=== PATIENT | female | born 1990 | race Caucasian/White ===

== ENCOUNTER 2020-03-25 18:56 | Emergency (ER) | payer MEDICAID, SELFPAY ==
[2020-03-25 18:57] VITALS: BP 160/103; PULSE 93; RESP 16; TEMP 36.1; O2SAT 96; BMI 38.4
--- NOTE | 2020-03-25 19:15 | RAD_ITS ---
STUDY: X-RAY - LEFT HAND REASON FOR EXAM: Female, 29 years old. vacuum pattern cleaner fell on patient''s hand, pain TECHNIQUE: 3 view(s) of the hand. COMPARISON: None. FINDINGS: Normal radiocarpal articulation. Normal distal radioulnar joint. Normal visualized carpal bones. Normal carpal articulations Normal carpometacarpal articulation of the thumb. Normal second through fifth carpometacarpal joints. Normal metacarpi. Normal metacarpophalangeal joint of the thumb. Normal interphalangeal joint of the thumb. Normal proximal and distal phalanges of the thumb. Normal metacarpophalangeal joints of the second through fifth fingers. Normal proximal and distal interphalangeal joints of the second through fifth fingers. Normal phalanges of the second through fifth fingers. The soft tissue structures are unremarkable. RAD/Hand Min 3 Views IMPRESSION: Normal x-ray examination of the hand. Electronically Signed: Edilberto Eldridge MD (Bro[place]) at 19:38 EST , Service support ,
--- NOTE | 2020-03-25 20:23 | ED.VISSUMM ---
- ER Visit Summary Date of Service: 03/25/20 Chief Complaint: Left hand pain History of Present Illness: The patient is a 29 F with left hand pain. A vacuum fell on her hand. Physical Examination: Patient has tenderness to palpation of the fourth metacarpal of her left hand. Skin intact. Neurovascular intact. Test Results: X-rays negative. Emergency Department Course and Treatment: Ice pack applied. X-rays negative. Rest, ice, elevate. [id number] remedies for pain. Outpatient follow-up. Treatment Plan: As above Disposition: Discharge Impression: Left hand contusion This note was generated with Flow Studio dictation software. It may contain incorrect words, spelling, and punctuation that were not noted in review of the chart prior to signing ED Disposition - Plan for ED Patient: Referrals: Colby Macario MD [Primary Care Provider] -
--- NOTE | 2020-03-25 20:24 | ED.DEP ---
ED Disposition - Plan for ED Patient: Instructions: Contusions (Bruises) Referrals: Cloby Macario MD [Primary Care Provider] -
[2020-03-25 20:51] VITALS: RESP 16
== END 2020-03-25 20:51 | disposition home or self-care (01) ==
LOC: ED 19:23
PROVIDERS: Emergency Provider Emergency Medicine; PCP Family Medicine
DX: S60.222A Contusion of left hand, initial encounter (principal); W20.8XXA Other cause of strike by thrown, projected or falling object, initial encounter; Y93.9 Activity, unspecified; Y92.89 Other specified places as the place of occurrence of the external cause; Y99.9 Unspecified external cause status
CPT/HCPCS: 73130; 99282

== ENCOUNTER 2020-10-12 21:08 | Emergency (ER) | payer MEDICAID, SELFPAY ==
[2020-10-12 21:08] VITALS: BP 131/69; PULSE 100; RESP 18; TEMP 36.6; O2SAT 98; BMI 38.0
--- NOTE | 2020-10-12 21:45 | ED.RN ---
2145 pt lwbs because her ride had to leave.
== END 2020-10-12 22:45 ==
LOC: ED 22:45
PROVIDERS: PCP Family Medicine
DX: R51.9 Headache, unspecified (principal)
CPT/HCPCS: A4216

== ENCOUNTER 2020-12-22 17:21 | Emergency (ER) | payer MEDICAID, SELFPAY ==
[2020-12-22 17:21] VITALS: BP 140/105; PULSE 126; RESP 18; TEMP 36.1; O2SAT 97; BMI 40.4
--- NOTE | 2020-12-22 18:40 | RAD_ITS ---
STUDY: X-RAY CHEST REASON FOR EXAM: Female, 30 years old. Cough TECHNIQUE: Single AP portable view of the chest. COMPARISON: None. FINDINGS: The lungs are clear and expanded. There is no demonstrated pleural abnormality. Normal size heart. Normal mediastinum and keith. Normal visualized pulmonary arteries. Normal visualized aortic arch and descending thoracic aorta. Normal visualized thoracic spine. Normal visualized ribs, clavicles, and shoulders. There is no demonstrated abnormality of the visualized soft tissue structures of the upper abdomen. RAD/Chest 1 View (Portable) IMPRESSION: Normal x-ray examination of the chest. Electronically Signed: Javed Garza MD at 19:05 EDT , Service support ,
--- NOTE | 2020-12-22 18:43 | EX.ED.DYSGE1 ---
HPI History of Present Illness Chief Complaint: Shortness of Breath Informant: patient Onset/Context/Timing Onset: Days Context: Gradual Onset Narrative Narrative: Patient presents with 3-day history of cough and shortness of breath. She rarely will bring up sputum and when she does she states it is green in color. She had low-grade temperature between 100.4 and 100.6. She does report some chest and rib pain worse with cough and movement. No vomiting or diarrhea. No loss of smell or taste. She was seen at urgent care today and had a Covid test obtained but results not available yet. PFSH PFSH Medical History no medical history no medical history Home Medications Omeprazole [Prilosec] 40 mg PO DAILY 12/25/15 [History Last Taken 05/29/16] etonogestrel-ethinyl estradiol [Nuvaring Vaginal Ring] 1 ea VG X1 12/25/15 [History Last Taken 05/05/16] benzonatate 100 mg PO TID PRN #20 cap 12/22/20 [Rx Last Taken Unknown] ropinirole mg 12/22/20 [History Last Taken Unknown] sertraline mg 12/22/20 [History Last Taken Unknown] sumatriptan succinate mg PO 12/22/20 [History Last Taken Unknown] triamcinolone acetonide applic TOPICAL 12/22/20 [History Last Taken Unknown] Allergy/AdvReac Type Severity Reaction Status Date / Time atomoxetine [From Strattera] AdvReac Nausea Verified 10/12/20 21:10 bupropion [From Wellbutrin] AdvReac Nausea Verified 10/12/20 21:10 Social History Smoking Status: Never smoker ROS ROS ED Constitutional Constitutional ED: Reports fever(s); Denies chills Eyes Eyes: Denies change in vision ENT ENT ED: Denies sore throat Cardiovascular Cardiovascular: Reports other Details: Chest wall pain Respiratory/Chest Respiratory/Chest: Reports cough, dyspnea and sputum Gastrointestinal Gastrointestinal: Denies abdominal pain, diarrhea, nausea or vomiting Genitourinary Genitourinary ED: Denies dysuria Musculoskeletal Musculoskeletal: Reports myalgias; Denies back pain Integumentary Denies rash Neurologic Neurologic: Denies headache(s) or weakness Allergic/Immunologic Allergic/Immunologic ED: Denies urticaria EXAM Physical Exam Const Vital Signs: 12/22/20 17:21 12/22/20 19:11 Temperature 96.9 F L Temperature Source Temporal Pulse Rate 126 H Respiratory Rate 18 Respiratory Effort Normal Respiratory Depth Normal Respiratory Pattern Normal Blood Pressure 140/105 H Blood Pressure Mean 116 Pulse Ox 97 Oxygen Delivery Method Room Air Positive well nourished and well developed General Appearance ED: well developed HEENT Reports normocephalic and head/scalp atraumatic Eyes PERRL and EOMs intact bilaterally Neck supple Chest Wall inspection of chest normal Chest Narrative: Muscular tenderness with palpation of her chest wall. Resp normal respiratory effort and clear to auscultation bilaterally Cardio regular rhythm Rate: tachycardic GI normal to inspection, nondistended, normoactive bowel sounds Palpation: soft Back/Spine no CVA tenderness Extremity normal to inspection Neuro oriented x3 and no sensory deficits noted Sensorium / Orientation: alert Motor Exam: strength 5/5 throughout Psych mental status grossly normal Skin no rashes or lesions noted MDM MDM MDM Narrative Medical decision making narrative: Portable chest x-ray, Covid swab ordered. Patient given Robitussin-AC. Radiography Chest X-Ray - ED: 1 View, Read by ED Physician, Normal, Heart, Lungs and Mediastinum Diagnostic Testing: Clinical Impression(s) from Imaging Studies Chest X-Ray 12/22/20 18:40 IMPRESSION: Normal x-ray examination of the chest. Electronically Signed: Javed Garza MD at 19:05 EDT , Service support , Treatment and Re-Evaluation Comments:: On repeat evaluation patient resting comfortably. Rapid Covid test is negative. Chest x-ray is clear per my interpretation as well as radiologist review. Patient will continue supportive care. I will write her Roland Vincent for home. Discharge Plan Triage Chief Complaint: Shortness of Breath ED Provider: Ayse العراقي Dx/Rx/DC Orders Clinical Impression: Viral URI with cough Instructions: ED URI, Viral, No Abx (Adult) Prescriptions: New benzonatate 100 mg capsule 100 mg PO TID PRN (Reason: cough) Qty: 20 RF: 0 No Action etonogestrel-ethinyl estradiol [NuvaRing] 1 EACH ring 1 ea VG X1 RF: 0 Omeprazole [Prilosec] 40 MG capsule 40 mg PO DAILY RF: 0 sertraline 100 mg tablet RF: 0 sumatriptan succinate 50 mg tablet PO RF: 0 triamcinolone acetonide 0.1 % cream TOPICAL RF: 0 ropinirole 0.5 mg tablet RF: 0 Primary Care Provider: Colby Macario Referrals: Colby Macario MD [Primary Care Provider] - 1 Week if not improving Disposition Disposition: Home, Self Care
--- NOTE | 2020-12-22 19:35 | ED.RN ---
Called pharmacy for cough syrup. Luis F Szymanski notifies me that it is backordered. aware and RN waiting new orders.
[2020-12-22] MEDS: guaiFENesin/Codeine 5 ML UDC 10 ML PO (20:13)
[2020-12-22 20:58] VITALS: BP 136/90; PULSE 108; RESP 18; O2SAT 97
== END 2020-12-22 20:58 | disposition home or self-care (01) ==
PROVIDERS: Emergency Provider Emergency Medicine; PCP Family Medicine
DX: J06.9 Acute upper respiratory infection, unspecified (principal); R05.9 Cough, unspecified; Z79.3 Long term (current) use of hormonal contraceptives
CPT/HCPCS: 71045; 87426; 99283

== ENCOUNTER 2021-07-09 09:26 | Observation (INO) | payer MEDICAID, SELFPAY ==
[2021-07-09 09:27] VITALS: BP 164/128; PULSE 114; RESP 7; TEMP 35.8; O2SAT 91; BMI 39.4
--- NOTE | 2021-07-09 09:51 | CT_ITS ---
STUDY: CT ABDOMEN AND PELVIS WITHOUT CONTRAST REASON FOR EXAM: Female, 30 years old. Kidney Stone. Left flank pain. RADIATION DOSAGE (If Supplied By Facility): CTDIvol = ( 17.87 ) mGy, DLP = ( 946.58 ) mGycm TECHNIQUE: Transaxial images were obtained from the dome of the diaphragm to the symphysis pubis without oral contrast, and without intravenous contrast. Sagittal and coronal images were reconstructed. Individualized dose optimization techniques were used for this CT. COMPARISON: Comparison is made with prior study dated 06/09/2016. FINDINGS: Minimal increase in markings at the lung bases suggestive of atelectasis. The visualized portions of the heart are within normal limits. There is decreased attenuation of the liver consistent with steatosis. Normal gallbladder and extrahepatic biliary system. There is mild splenomegaly. Normal pancreas. Normal bilateral adrenal glands. Normal right kidney. Mild degree of left hydronephrosis and left hydroureter with left perinephric and periureteric stranding due to a 3 mm calculus at the left ureterovesical junction. 2 mm nonobstructive calculus is also seen in the upper pole calyx of the left kidney. There is a small hiatal hernia. Normal small intestine. There are scattered colonic diverticula consistent with diverticulosis. The appendix is visualized and appears normal. Normal abdominal aorta. Normal inferior vena cava. Normal retroperitoneum. Normal urinary bladder. IUD is seen within the uterus. Small follicles are seen in the ovaries. Normal abdominal wall. Normal osseous structures. CT/Abdomen/Pelvis without Cont IMPRESSION: 3 mm calculus at the left ureteral vesicle junction causing mild degree of left hydronephrosis and nodule ureter. 2 mm nonobstructive calculus in the upper pole of the left kidney. Electronically Signed: Miko Howard MD at 11:07 EDT ,
--- NOTE | 2021-07-09 10:00 | EX.ED.DYSGE1 ---
HPI History of Present Illness Chief Complaint: Flank Pain Detail of Chief Complaint: Abrupt right-sided flank pain radiating anteriorly Informant: patient Onset/Context/Timing Onset: Today and Hours (0530) Context: Sudden Onset Timing: Continuous and Waxes and wanes Quality: Colicky Location: Right Current Severity: Severe Maximum Severity: Severe Worsened by: Nothing Relieved by: Nothing Associated Symptoms Associated Symptoms: Nausea and vomiting and urgency Narrative Narrative: Patient is a 30-year-old female who presents with abrupt onset of flank pain radiating anteriorly associate with nausea and vomiting. She has history of renal and ureteral stones. She states she has not been to the emergency room in some time for kidney stone. She denies fever, chills night sweats. She denies upper respiratory symptoms. She does endorse nausea and vomiting. She denies diarrhea. She does endorse urgency. She denies dysuria or hematuria. There is no history of trauma. Prior similar symptoms: Yes Recent Illness/Hospitalization: No PFSH PFS Medical History (Updated 07/09/21 @ 13:[address] Glenn Xavier MD) Depression History of kidney stones Home Medications sertraline [Zoloft] 200 mg PO DAILY 07/09/21 [History Last Taken Unknown] Allergy/AdvReac Type Severity Reaction Status Date / Time atomoxetine [From Strattera] AdvReac Nausea Verified 07/09/21 09:26 bupropion [From Wellbutrin] AdvReac Nausea Verified 07/09/21 09:26 Social History (Updated 07/09/21 @ 10:[address] Glenn Xavier MD) household members: none Smoking Status: Never smoker substance use type: does not use ROS ROS ED Constitutional Constitutional ED: Denies chills, fever(s), subjective, sweats or weight loss Eyes Eyes: Denies blurry vision, change in vision or diplopia ENT ENT ED: Denies ear pain, rhinorrhea or sore throat Cardiovascular Cardiovascular: Denies chest pain, palpitations or racing heartbeat Respiratory/Chest Respiratory/Chest: Denies dyspnea Gastrointestinal Gastrointestinal: Reports abdominal pain, nausea and vomiting; Denies constipation, diarrhea or melena Genitourinary Genitourinary ED: Denies dysuria, hematuria or urinary frequency Musculoskeletal Musculoskeletal: Reports back pain; Denies arthralgias, myalgias or neck pain Integumentary Denies rash Neurologic Neurologic: Denies headache(s) or weakness Hematologic/Lymphatic Hematologic/Lymphatic: Denies anemia, easy bleeding or easy bruising EXAM Physical Exam Const Vital Signs: 07/09/21 09:27 07/09/21 14:24 Temperature 96.4 F L Temperature Source Temporal Pulse Rate 114 H Respiratory Rate 7 L 16 Blood Pressure 164/128 H Blood Pressure Mean 140 Pulse Ox 91 Oxygen Delivery Method Room Air Room Air Positive well nourished, well developed and obese General Appearance ED: well developed and other Patient appears in obvious discomfort and unable to find position of comfort. She is actively vomiting. ; Negative for cyanotic, diaphoretic, NAD or pallor Nutritional Appearance: obese HEENT Reports TM's clear and moist mucous membranes Negative for trauma or tenderness Tympanic Membrane ED: Yes TM's clear Eyes PERRL and EOMs intact bilaterally General Eye ED: Negative for pale conjunctiva or scleral icterus Neck no lymphadenopathy, supple and no JVD Resp normal respiratory effort and clear to auscultation bilaterally Cardio regular rhythm, S1 normal heart sound, S2 normal heart sound and no murmurs Rate: tachycardic GI normal to inspection, nondistended, normoactive bowel sounds and non-tender Palpation: soft Back/Spine General Back: CVA tenderness bilateral (Right significantly greater than left) Cervical Spine: Negative for cervical spine tenderness Thoracic Spine / Upper Back: Negative for thoracic spinal tenderness or paraspinal muscle tenderness Neuro oriented x3 and CN's II-XII intact bilaterally Sensorium / Orientation: alert Psych Mood & Affect: tearful Skin no rashes or lesions noted and no wounds General Skin Exam: Negative for jaundice or pallor MDM MDM MDM Narrative Medical decision making narrative: Patient presents with history consistent with obstructing ureterolithiasis. Will obtain UA to rule out infection. Patient was medicated with IV Toradol and morphine for her pain and Zofran for her nausea and vomiting. CT of the abdomen pelvis was ordered to determine size and location of stone. Lab Data Attestation: I reviewed the patient's lab results. Lab results narrative: Urine is consistent with infection. Urine culture was sent. Patient received 1 g of Rocephin. Since she has an obstructing stone with infection Dr. Villa was paged. Labs: Laboratory Results - last 24 hr 07/09/21 07/09/21 07/09/21 10:08 10:08 11:55 WBC 5.5 RBC 5.14 Hgb 14.1 Hct 43.3 MCV 84.2 MCH 27.4 MCHC 32.6 RDW Std Deviation 38.6 RDW Coeff of Rock 12.7 Plt Count 141 L MPV 10.8 Immature Gran % (Auto) 0.200 Neut % (Auto) 76.2 H Lymph % (Auto) 17.5 L [place] % (Auto) 5.2 Eos % (Auto) 0.4 Baso % (Auto) 0.5 Absolute Neuts (auto) 4.2 Absolute Lymphs (auto) 0.97 Nucleated RBC % 0 Sodium 142 Potassium 4.1 Chloride 112 H Carbon Dioxide 23.0 Anion Gap 7 BUN 13 Creatinine 1.06 H Estim Creat Clear Calc 61.38 Est GFR (MDRD) Af Amer 78 Est GFR (MDRD) Non-Af 64 BUN/Creatinine Ratio 12.3 Glucose 154 H Calcium 9.1 Urine Color Yellow Urine Clarity Sl. Cloudy Urine pH 5.0 Ur Specific [place] 1.025 Urine Protein 15 H Urine Glucose (UA) Normal Urine Ketones 5 H Urine Occult Blood 250 H Urine Nitrite Negative Urine Bilirubin Negative Urine Urobilinogen Normal Ur Leukocyte Esterase 100 H Urine RBC 25-50 SEEN Urine WBC 10-25 SEEN Ur Squamous Epith Cells 0-5 SEEN Urine Bacteria 2+ Urine Mucus 0 SEEN Radiography Diagnostic Testing: Clinical Impression(s) from Imaging Studies Abdomen/Pelvis CT 07/09/21 09:51 IMPRESSION: 3 mm calculus at the left ureteral vesicle junction causing mild degree of left hydronephrosis and nodule ureter. 2 mm nonobstructive calculus in the upper pole of the left kidney. Electronically Signed: Miko Howard MD at 11:07 EDT , Discharge Plan Triage Chief Complaint: Flank Pain ED Provider: Glenn Xavier Dx/Rx/DC Orders Clinical Impression: Hydronephrosis with urinary obstruction due to ureteral calculus, Urinary tract infection Prescriptions: No Action sertraline [Zoloft] 100 mg Tablet 200 mg PO DAILY RF: 0 Primary Care Provider: Colby Macario Referrals: Colby Macaroi MD [Primary Care Provider] - Disposition Disposition: Acute Care Hospital [facility]
[2021-07-09] MEDS: Morphine 4 MG/ML Syringe IV (10:03)
[2021-07-09] MEDS: Ondansetron 4 MG/2 ML Vial IV ×2 (10:03→21:48)
[2021-07-09] MEDS: Ketorolac 15 MG/ML Vial IV (10:03)
[2021-07-09 10:19] LABS: Absolute Lymphocyte Count 0.97 X10^3/uL (0.83-4.51); Absolute Neutrophil Count 4.2 X10^3/uL (2.0-7.7); Basophil# 0.03 X10^3/uL; Basophil% 0.5 % (0-1); Eosinophil# 0.02 X10^3/uL; Eosinophils% 0.4 % (0-5); Hematocrit 43.3 % (37-47); Hemoglobin 14.1 g/dL (12.0-15.0); Lymphocyte # 0.97 X10^3/ul (0.83-4.51); Lymphocyte % 17.5 % (19-41); Mean Corp Hgb Conc 32.6 g/dL (32-36); Mean Corpuscular Hgb 27.4 pg (27.0-32.0); Mean Corpuscular Volume 84.2 fL (81-99); Mean Platelet Vol. 10.8 fl (6.2-12.0); Monocyte# 0.29 X10^3/uL; Monocyte% 5.2 % (0-10); NRBC Flagged by Analyzer 0 % (0-5); Neutrophil # 4.21 X10^3/uL (2.7-7.7); Neutrophil % 76.2 % (47-70); Platelet Count 141 K/mm3 (150-450); RBC Distribution Width CV 12.7 % (11.6-14.6); RBC Distribution Width SD 38.6 fl (35.1-43.9); Red Blood Count 5.14 M/mm3 (4.2-5.4); White Blood Count 5.5 K/mm3 (4.4-11.0)
[2021-07-09 10:32] LABS: Anion Gap 7 (5-15); BUN 13 mg/dL (7-18); BUN/Creat Ratio 12.3 RATIO (10-20); Calcium,Total 9.1 mg/dL (8.5-10.1); Chloride 112 mmol/L (98-107); Creatinine, Serum 1.06 mg/dL (0.55-1.02); EST Glomerular Filtration Rate 64 mL/min (>60); Est Glom Filt Rate - Afr Amer 78 mL/min (>60); Estimated Creatinine Clearance 61.38 ml/min; Glucose 154 mg/dL (74-106); Potassium 4.1 mmol/L (3.5-5.1); Sodium Level 142 mmol/L (136-145)
[2021-07-09] MEDS: 0.9% Normal Saline 1,000 ML 250 ML IV (11:44)
[2021-07-09 12:11] LABS: Mucous, Urine 0 SEEN /hpf (<or=2+)
[2021-07-09 12:12] LABS: Color, Urine Yellow (Yellow); Glucose, Dipstick Normal (Normal); Ketone-Dipstick 5 mg/dl (Negative); Leukocyte Esterase-Dipstick 100 /ul (Negative); Nitrite-Dipstick Negative (Negative); Occult Blood-Urine 250 /ul (Negative); Protein-Dipstick 15 mg/dl (Negative); Specific Gravity, Urine 1.025 (1.002-1.030); Urine Bilirubin Dipstick Negative (Negative); Urine Clarity Sl. Cloudy (Clear); Urine Urobilinogen Normal (Normal)
[2021-07-09 12:21] LABS: Bacteria 2+ /hpf (None Seen); Red Blood Cells-Urine 25-50 SEEN /hpf (0-5); Squamous Epithelial Cells - UA 0-5 SEEN /hpf (5-10); White Blood Cells 10-25 SEEN /hpf (0-5)
[2021-07-09] MEDS: Ceftriaxone 1 GM/50 ML BAG IV (13:35)
[2021-07-09 14:24] VITALS: RESP 16
--- NOTE | 2021-07-09 14:32 | NURSING ---
MED SURG OBS RICHARD HYDONEPHROSIS AND URETER DUE TO OBSTRUCTING STONE WITH INFECTION
--- NOTE | 2021-07-09 15:13 | ED.RN ---
This nurse called Dr. Abarca's office to obtain verbal orders for admit but MD was in a procedure. Message left with office nurse. Awaiting call back.
[2021-07-09 15:17] VITALS: BP 143/87; PULSE 76; RESP 17; TEMP 36.6
[2021-07-09 16:15] VITALS: BP 133/96; PULSE 82; RESP 16; TEMP 36.2; O2SAT 100
[2021-07-09 16:16] VITALS: BMI 39.9
--- NOTE | 2021-07-09 16:21 | PCM.HP.STD ---
HPI - General General Date of Admission: 07/09/21 HPI Narrative CHACE LANDA, is a 30 F who presents with severe pain from a distal left ureteral calculi and a possible urinary tract infection patient will be admitted for pain control and will take her to surgery to remove the stone if she does not pass it in 48 hours. [facility] Medical History (Updated 07/09/21 @ 14:46 by Davida Alcantara) ADHD Anxiety Depression History of kidney stones Home Medications sertraline [Zoloft] 200 mg PO DAILY 07/09/21 [History Last Taken Unknown] Allergy/AdvReac Type Severity Reaction Status Date / Time atomoxetine [From Strattera] AdvReac Nausea Verified 07/09/21 09:26 bupropion [From Wellbutrin] AdvReac Nausea Verified 07/09/21 09:26 Social History (Updated 07/09/21 @ 10:[address] Glenn Xavier MD) household members: none Smoking Status: Never smoker substance use type: does not use ROS Constitutional Constitutional: Denies chills, fever(s) or malaise Eyes Eyes: Denies blurry vision or change in vision ENT HEENT: Reports none Cardiovascular Cardiovascular: Denies chest pain or palpitations Respiratory/Chest Respiratory/Chest: Denies cough or shortness of breath with exertion Gastrointestinal Gastrointestinal: Denies abdominal pain, constipation or diarrhea Musculoskeletal Musculoskeletal: Denies back pain, joint stiffness or joint swelling Integumentary Integumentary: Denies dry skin, jaundice, lesions or rash Neurologic Neurologic: Denies confusion, syncope or weakness Psychiatric Psychiatric: Reports none; Denies anxiety or depression Endocrine Endocrinology: Denies excessive sweating, fatigue or flushing Hematologic/Lymphatic Hematologic/Lymphatic: Denies anemia, easy bleeding or easy bruising Vital Signs Vital Signs Vital Signs: 07/09/21 09:27 07/09/21 14:24 07/09/21 15:17 Temperature 96.4 F L 97.8 F Temperature Source Temporal Oral Pulse Rate 114 H 76 Respiratory Rate 7 L 16 17 Blood Pressure 164/128 H 143/87 H Blood Pressure Mean 140 105 Blood Pressure Source Blood Pressure Position Blood Pressure Location Pulse Ox 91 Oxygen Delivery Method Room Air Room Air Room Air 07/09/21 16:15 Temperature 97.2 F L Temperature Source Temporal Pulse Rate 82 Respiratory Rate 16 Blood Pressure 133/96 H Blood Pressure Mean 108 Blood Pressure Source Monitor Blood Pressure Position Semi-Fowlers Blood Pressure Location Left Arm Pulse Ox 100 Oxygen Delivery Method Room Air Weight Weight: 99 kg Body Mass Index (BMI) 39.9 Physical Exam Const alert and oriented x3 General Appearance: cooperative HEENT normocephalic, head/scalp atraumatic, EAC's normal and TM's normal bilaterally Eyes PERRL and EOMs intact bilaterally Pupil: sluggish Neck no lymphadenopathy, supple and no JVD General: trachea midline Lymph Lymphatic: no lymphadenopathy noted, lymphedema and lymphadenopathy Resp normal respiratory effort, normal air movement and clear to auscultation bilaterally Cardio regular rate, regular rhythm and peripheral pulses 2+ throughout GI soft to palpation, non-tender and non-distended Extremity normal capillary refill and no clubbing, cyanosis or edema General Extremity: no tenderness to palpation of joints or extremities Skin no rashes or lesions noted General Skin Exam: turgor normal Lesions: no lesions Rashes: no rashes Neuro CN's II-XII intact bilaterally Speech: speech normal Motor Exam: strength 5/5 throughout; Negative for general weakness Psych thought process normal, cooperative and affect normal Appearance: appropriate Results Lab / Micro Data Result Diagrams: 07/09/21 10:08 07/09/21 10:08 Labs: Laboratory Results - last 24 hr 07/09/21 10:08: WBC 5.5, RBC 5.14, Hgb 14.1, Hct 43.3, MCV 84.2, MCH 27.4, MCHC 32.6, RDW Std Deviation 38.6, RDW Coeff of Rock 12.7, Plt Count 141 L, MPV 10.8, Immature Gran % (Auto) 0.200, Neut % (Auto) 76.2 H, Lymph % (Auto) 17.5 L, [place] % (Auto) 5.2, Eos % (Auto) 0.4, Baso % (Auto) 0.5, Absolute Neuts (auto) 4.2, Absolute Lymphs (auto) 0.97, Nucleated RBC % 0 07/09/21 10:08: Sodium 142, Potassium 4.1, Chloride 112 H, Carbon Dioxide 23.0, Anion Gap 7, BUN 13, Creatinine 1.06 H, Estim Creat Clear Calc 61.38, Est GFR (MDRD) Af Amer 78, Est GFR (MDRD) Non-Af 64, BUN/Creatinine Ratio 12.3, Glucose 154 H, Calcium 9.1 07/09/21 11:55: Urine Color Yellow, Urine Clarity Sl. Cloudy, Urine pH 5.0, Ur Specific [place] 1.025, Urine Protein 15 H, Urine Glucose (UA) Normal, Urine Ketones 5 H, Urine Occult Blood 250 H, Urine Nitrite Negative, Urine Bilirubin Negative, Urine Urobilinogen Normal, Ur Leukocyte Esterase 100 H, Urine RBC 25-50 SEEN, Urine WBC 10-25 SEEN, Ur Squamous Epith Cells 0-5 SEEN, Urine Bacteria 2+, Urine Mucus 0 SEEN Radiology Impression Abdomen/Pelvis CT 07/09/21 09:51 IMPRESSION: 3 mm calculus at the left ureteral vesicle junction causing mild degree of left hydronephrosis and nodule ureter. 2 mm nonobstructive calculus in the upper pole of the left kidney. Electronically Signed: Miko Howard MD at 11:07 EDT , Assessment & Plan Assessment/Plan (1) Hydronephrosis with urinary obstruction due to ureteral calculus: PLAN: Admit for pain control plan for surgical invention of the stone. (2) Urinary tract infection:
[2021-07-09] MEDS: 0.9% Normal Saline 1,000 ML 125 ML IV (17:00)
[2021-07-09 20:23] VITALS: BP 127/73; PULSE 81; RESP 16; TEMP 36.6; O2SAT 99
[2021-07-09] MEDS: Famotidine 20 MG Tablet PO (20:42)
[2021-07-09] MEDS: 0.9% Saline Lock 10 ML Syringe IV (21:48)
[2021-07-09] MEDS: Sertraline 100 MG Tablet 200 MG PO (22:21)
[2021-07-10] MEDS: 0.9% Normal Saline 1,000 ML 125 ML IV ×3 (00:44→16:47)
[2021-07-10 02:25] VITALS: BP 104/63; PULSE 73; RESP 18; TEMP 36.6; O2SAT 98
[2021-07-10 06:11] LABS: Absolute Lymphocyte Count 1.59 X10^3/uL (0.83-4.51); Absolute Neutrophil Count 3.8 X10^3/uL (2.0-7.7); Basophil# 0.03 X10^3/uL; Basophil% 0.5 % (0-1); Eosinophil# 0.04 X10^3/uL; Eosinophils% 0.7 % (0-5); Hematocrit 36.3 % (37-47); Hemoglobin 11.9 g/dL (12.0-15.0); Lymphocyte # 1.59 X10^3/ul (0.83-4.51); Lymphocyte % 27.4 % (19-41); Mean Corp Hgb Conc 32.8 g/dL (32-36); Mean Corpuscular Hgb 27.5 pg (27.0-32.0); Mean Platelet Vol. 10.4 fl (6.2-12.0); Monocyte# 0.34 X10^3/uL; Monocyte% 5.9 % (0-10); NRBC Flagged by Analyzer 0 % (0-5); Neutrophil # 3.78 X10^3/uL (2.7-7.7); Neutrophil % 65.2 % (47-70); Platelet Count 116 K/mm3 (150-450); RBC Distribution Width SD 39.9 fl (35.1-43.9); Red Blood Count 4.32 M/mm3 (4.2-5.4); White Blood Count 5.8 K/mm3 (4.4-11.0)
[2021-07-10 06:38] LABS: Anion Gap 5 (5-15); BUN 11 mg/dL (7-18); BUN/Creat Ratio 12.2 RATIO (10-20); Calcium,Total 8.3 mg/dL (8.5-10.1); Chloride 114 mmol/L (98-107); EST Glomerular Filtration Rate 77 mL/min (>60); Est Glom Filt Rate - Afr Amer 94 mL/min (>60); Estimated Creatinine Clearance 72.29 ml/min; Glucose 121 mg/dL (74-106); Potassium 3.8 mmol/L (3.5-5.1); Sodium Level 143 mmol/L (136-145)
--- NOTE | 2021-07-10 07:33 | PCM.PN.BLA ---
Progress Note has not passed stone plan for surgery tomorrow if fails to pass stone
[2021-07-10 08:30] VITALS: BP 132/92; PULSE 66; RESP 16; TEMP 36.5; O2SAT 98
[2021-07-10] MEDS: Famotidine 20 MG Tablet PO ×2 (08:42→22:22)
--- NOTE | 2021-07-10 11:10 | CASEMGMT ---
RN IRMA Face to Face with patient for initial transition planning/care coordination assessment. RN CM introduced self and role at [facility]. Patient lying in bed, alert and oriented. Patient willing to participate in assessment and is able to answer all questions appropriately. Care providers, pharmacy, and demographics verified. Patient wishes to discharge home, denies need for home health at this time. Patient states she has no further needs or concerns at this time. CM to follow for discharge planning needs that may arise. PCP: Renaldo Specialists: none Preferred Pharmacy: [facility] Insurance: [facility] [employer] Prescription Benefit: yes Living Will/HPOA: none LNOK: sister Living Arrangements: Patient lives alone in a 1st floor apartment with 1 step to enter. Patient states she is independent at home. Transportation: cousin DME/HHC: patient denies DME or previous HHC. Disposition Plan: Patient to discharge home with family support and follow-up plans in place. Nely ALMEIDA, RN, CM
[2021-07-10 14:30] VITALS: BP 137/83; PULSE 85; RESP 16; TEMP 36.4; O2SAT 97
[2021-07-10 20:11] VITALS: BP 139/83; PULSE 82; RESP 18; TEMP 36.6; O2SAT 98
[2021-07-10 20:51] VITALS: O2SAT 98
[2021-07-10] MEDS: Sertraline 100 MG Tablet 200 MG PO (22:22)
[2021-07-11] VITALS (10 sets, daily range): BP systolic 109–151; BP diastolic 68–96; PULSE 64–90; RESP 14–18; TEMP 36.4–36.8; O2SAT 91–100; BMI 39.9
[2021-07-11] MEDS: 0.9% Normal Saline 1,000 ML 125 ML IV ×3 (01:44→13:55)
[2021-07-11] MEDS: Acetaminophen 325 MG Tablet 650 MG PO (09:52)
[2021-07-11] MEDS: Cefazolin 2 GM in 0.9% Normal Saline 100 ML IV (12:17)
--- NOTE | 2021-07-11 12:19 | PCM.DC.SUM ---
Providers Date of Admission: 07/09/21 Primary Care Physician: Dr. Colby Macario MD Reason For Visit: KIDNEY STONE / PYELONEPHROSIS Diagnosis Discharge Diagnosis (1) Hydronephrosis with urinary obstruction due to ureteral calculus: Status: Acute Code(s): N13.2 - Hydronephrosis with renal and ureteral calculous obstruction (2) Urinary tract infection: Status: Acute Code(s): N39.0 - Urinary tract infection, site not specified Medications at Discharge Home Medications sertraline [Zoloft] 200 mg PO DAILY 07/09/21 ciprofloxacin HCl [Cipro] 500 mg PO BID #10 tab 07/11/21 oxycodone-acetaminophen 1 tab PO Q6H PRN 7 Days #10 tab 07/11/21 Hospital Course Summary of Care Provided Hospital Course: pt failed to pass stone in hospital, taken to OR for kidney stone Weight / BMI Weight Weight: 99 kg Body Mass Index (BMI) 39.9 ABG / Lab / Microbiology Data Result Diagrams: 07/10/21 05:36 07/10/21 05:36 Microbiology: Microbiology 07/09/21 11:55 Urine, Clean Catch Urine Culture - Final Mixed Gram Positive Organisms Meaningful Use Info Meaningful Use Diagnoses (Choose all that apply): None applicable Discharge Plan Admission Admit Date/Time: 07/09/21 16:24 Primary Reason for Your Visit: kidney stone Attending Provider: Oleg Abarca Primary Care Provider: Colby Macario Discharge Orders/Prescriptions Prescriptions: New oxycodone-acetaminophen 5-325 mg tablet 1 tab PO Q6H PRN (Reason: pain) 7 Days Qty: 10 RF: 0 ciprofloxacin HCl [Cipro] 500 mg tablet 500 mg PO BID Qty: 10 RF: 0 Continued sertraline [Zoloft] 100 mg Tablet 200 mg PO DAILY RF: 0 Referrals / Follow Up: Colby Macario MD [Primary Care Provider] - Oleg Abarca MD [STAFF PHYSICIAN] - Disposition Discharge Orders: Discharge Patient (Routine); Ordered 07/11/21 Ordered By: Dr. Oleg Abarca
--- NOTE | 2021-07-11 12:43 | OP.PCM_ITS ---
Report of Operation Date of Procedure: 07/11/21
--- NOTE | 2021-07-11 12:43 | PCM.OPRPT ---
Report of Operation Date of Procedure: 07/11/21
--- NOTE | 2021-07-11 12:43 | PCM.OPRPT ---
Report of Operation Date of Procedure: 07/11/21 Pre-Operative Diagnosis: Distal left ureteral calculi Post-Operative Diagnosis: Same Surgery/Procedure Performed:: Cystoscopy left retrograde pyelogram interpretation fluoroscopic images no stone. Description of Surgical Findings:: This is a 30-year-old female presented to the hospital with severe intractable pain from a small stone in the distal left ureter she was admitted for observation she failed to pass a stone which drained all the urine had not passed the stone, so then we elected to take her surgery she underwent general anesthesia we went into the bladder with a 21 Hungarian rigid cystourethroscope and inspection of the bladder there was no obvious abnormalities within the bladder I then cannulated the left ureteral orifice with a Pollick cath and a Glidewire performed a retrograde pyelogram contrast went all the way up and contrast came out nicely without any blockages no stone along the course of the ureter she had passed a stone while in the hospital but was never caught so at this point no other procedures were done the bladder was emptied patient acetic was reversed and she will go home. no stent was placed. Surgeon: bren Type of Anesthesia: General Drains: none Admit VTE Documentation VTE Present on Admission: No VTE Mechan Device Prophylaxis: SCD's VTE Pharm Prophylaxis ordered?: No
--- NOTE | 2021-07-11 13:36 | CASEMGMT ---
Social Work SW received referral from physician for Financial Concerns. SW met with pt and introduced self and role of SW. Pt denies financial concerns at this time. SW inquired about housing and food insecurity. Pt states she feels safe in her home and has good housing. Pt states she does get food stamps and has no concerns with food insecurity. Pt does states she does not work but would like to find a job. Pt does not drive and does not have transportation to a job. SW provided pt resources from [employer] and the transportation program they have available through [facility] [employer] and [employer]. SW also provided [facility] [employer] program information. Pt is accepting and appreciate of information. 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 SW provided emotional support for loss of mother. SW will remain available if further needs arise. LARISSA Valdez
== END 2021-07-11 19:17 | disposition home or self-care (01) | DRG 463 ==
LOC: ED 14:28 → MS3 16:25
PROVIDERS: Admitting Provider Urology; Emergency Provider Emergency Medicine; PCP Family Medicine; Visit Provider Urology
PROC: (CPT 52005; principal; 2021-07-11 16:30)
DX: N13.6 Pyonephrosis (principal); F32.A Depression, unspecified; F41.9 Anxiety disorder, unspecified; Z87.442 Personal history of urinary calculi; F90.9 Attention-deficit hyperactivity disorder, unspecified type; Z97.5 Presence of (intrauterine) contraceptive device; Z79.899 Other long term (current) drug therapy
CPT/HCPCS: 52005; 00910; C1769; 36415; 74176; 76000; 80048; 81001; 85025; 87086; 87088; 96361; 96365; 96375; 96376; 97802; 99218; 99284; J7030; A4216; G0378; J2405